=== PATIENT | male | born 1990 | race Caucasian/White ===

== ENCOUNTER 2021-10-15 06:23 | Emergency (ER) | payer OTHER ==
[~2021-10-15] VITALS: Ht 177.8 cm; Wt 79.4 kg
--- NOTE | 2021-10-15 06:25 | NUR ---
Patient to ER bed 7 to gown for evaluation. Side rails up.
--- NOTE | 2021-10-15 06:37 | NUR ---
Dr. Baeza at bedside for evaluation.
[2021-10-15 06:39] VITALS: BP_SYST 139
[2021-10-15] MEDS ORDERED: KETOROLAC TROMETHAMINE 30 MG VIAL IVP ONE (06:45)
--- NOTE | 2021-10-15 06:50 | NUR ---
# 20 gauge angiocath placed to LEFT AC . Use of asceptic technique. Opsite placed over site. Blood return noted. Blood for lab drawn from site. Flushed with 10 cc of normal saline. No evidence of infiltration noted. Patient tolerated well.
--- NOTE | 2021-10-15 06:59 | NUR ---
PATIENT AAOX4 AND AMBULATORY FROM HOME C/O SUBSTERNAL SHARP CHEST PAIN THAT STARTED YESTERDAY. STATING IT IS NON-RADIATING, DENIES SOB, N/V/D. STATED HE IS CURRENTLY STATING STEROIDS FOR A BACK INJURY HE HAS BEEN GOING TO REHAB AND SEEING A SPECIALIST FOR. CURRENTLY STATING 4/10 ON THE PAIN SCALE. VSS. CAP REFILL <3.
--- NOTE | 2021-10-15 07:07 | NUR ---
REPORT GIVEN TO ZAHEER TO ASSUME ALL CARE OF PT. PT RESTING AWAITING FOR XRAY.
--- NOTE | 2021-10-15 07:10 | NUR ---
REPORT RECEIVED FROM RUDY DE LA CRUZ FOR CONTINUING CARE
[2021-10-15 07:11] LABS: BASOPHILS % (AUTO) 0.3 % (0.0-2.0); EOSINOPHILS % (AUTO) 0.6 % (0.0-4.0); HEMATOCRIT 43.7 % (36-54); HEMOGLOBIN 15.2 g/dL (14.0-18.0); LYMPHOCYTES # (AUTO) 1.5 K/uL (1.0-5.5); LYMPHOCYTES % (AUTO) 22.9 % (20.5-51.5); MEAN CORPUSCULAR HEMOGLOBIN 30 pg (27-31); MEAN CORPUSCULAR HGB CONC 35 % (32-36); MEAN CORPUSCULAR VOLUME 85 fL (79.0-98.0); MONOCYTES # (AUTO) 0.5 K/uL (0.0-1.0); MONOCYTES % (AUTO) 8.3 % (1.7-9.3); NEUTROPHILS # (AUTO) 4.5 K/uL (1.8-7.7); NEUTROPHILS % (AUTO) 67.9 % (40.0-70.0); PLATELET COUNT (AUTO) 233 K/uL (130-430); RED BLOOD CELL COUNT(AUTO) 5.15 MIL/uL (4.2-6.2); RED CELL DISTRIBUTION WIDTH 12.7 % (9.0-15.0); WHITE BLOOD COUNT (AUTO) 6.6 K/uL (4.8-10.8)
--- NOTE | 2021-10-15 07:24 | NUR ---
RADIOLOGY at bedside with patient.
[2021-10-15 07:30] LABS: ANION GAP 7 (5-15); CHLORIDE 103 mmol/L (98-107); CREATININE 1.04 mg/dL (0.55-1.30); GLUCOSE 113 mg/dL (70-99); POTASSIUM 3.7 mmol/L (3.5-5.1); SODIUM SERUM 140 mmol/L (136-145); UREA NITROGEN, BLOOD 19 mg/dL (8-21)
[2021-10-15 07:36] LABS: ALANINE AMINOTRANSFERASE 25 U/L (12-78); ALBUMIN 4.3 g/dL (3.4-4.8); ASPARTATE AMINOTRANSFERASE 11 U/L (10-37); TOTAL BILIRUBIN 0.5 mg/dL (0.0-1.0)
[2021-10-15 07:46] LABS: GFR AFRICAN AMERICAN 108 mL/min (>90)
--- NOTE | 2021-10-15 09:30 | NUR ---
PT RESTING IN GURNEY, AAOX4, V/S STABLE
[2021-10-15] MEDS ORDERED: NAPR-688 PO (10:22)
[2021-10-15 10:47] VITALS: BP_SYST 139
--- NOTE | 2021-10-15 10:48 | NUR ---
Patient given written and verbal discharge instructions and verbalizes understanding. ER MD discussed with patient the results and treatment provided. Patient in stable condition. ID arm band removed. IV catheter removed intact and dressing applied, no active bleeding. Rx of NAPROXEN given. Patient educated on pain management and to follow up with PMD. Pain Scale 0/10. Opportunity for questions provided and answered. Medication side effect fact sheet provided.
== END 2021-10-15 10:47 | disposition home or self-care (01) ==
LOC: SED 06:23
DX: R07.2 Precordial pain (principal); Z79.899 Other long term (current) drug therapy
CPT/HCPCS: 36415; 71045; 80053; 84484; 85025; 93005; 96374; 99285